=== PATIENT | female | born 1960 | race Caucasian/White ===

== ENCOUNTER 2016-09-05 07:03 | Emergency (ER) | payer OTHER ==
[2016-09-05 07:22] VITALS: RESP 16; TEMP 98.3; O2SAT 98
--- NOTE | 2016-09-05 07:44 | UCPHY ---
H & P Time Seen by Provider: 09/05/16 07:29 Patient Type: New HPI/ROS: This patient reports cough associated with chest pressure when she coughs, and noisy sound when she breathing. Her symptoms started 1 week ago and she reports worsening of the cough intensity and frequency. She was unable sleep last night due to the cough. She has associated nasal congestion. She reports no other associated symptoms. She states that she tends to get this similar illness once every 1 or 2 years and that the cough tends to last a long time despite initial improvement with inhaler. ROS: No fevers or chills. No pleuritic pain. She reports no respiratory distress. No vomiting. No myalgias. 7 point ROS is otherwise negative Past Medical/Surgical History: Otherwise healthy Smoking Status: Never smoked Physical Exam: Physical Exam Vital signs are normal. General: No acute distress HEENT: Nose: Clear discharge bilaterally. Oropharynx: No erythema. No exudates or dysphonia ears: External canals and TMs are clear bilaterally. Eyes: Pupils equal and react to light. Extraocular motions are intact. Lungs: Faint expiratory bilateral wheeze and rhonchi. No rales. No respiratory distress. Cardiac: Regular rate and rhythm with no murmur gallop or rub Skin: No rash or pallor. Neuro: Alert and oriented x3 with no sensorimotor deficits. My initial differential diagnosis: Viral versus bacterial bronchitis. No clinical evidence of lower respiratory infection. Constitutional: Initial Vital Signs Temperature (C) 36.8 C 09/05/16 07:19 Heart Rate 101 H 09/05/16 07:19 Respiratory Rate 16 09/05/16 07:19 Blood Pressure 141/89 H 09/05/16 07:19 O2 Sat (%) 98 09/05/16 07:19 O2 Delivery Mode Room Air Allergies/Adverse Reactions: No Known Allergies Allergy (Unverified 09/05/16 07:22) Home Medications: Medication Instructions Recorded Albuterol Hfa Anes Only [Proair 2 puffs IH Q4 PRN #1 mdi 09/05/16 Hfa Icu (*)] Azithromycin [Zithromax] 250 mg PO DAILY #6 tab 09/05/16 Fluticasone Hfa 220 Mcg [Flovent 2 puffs IH DAILY #1 mdi 09/05/16 220 MCG Hfa MDI (*)] Guaifenesin/Codeine Phosphate 5 - 10 ml PO Q6 PRN #120 ml 09/05/16 [Guaifenesin-Codeine Liquid] MDM/Departure - Depart Disposition: Home, Routine, Self-Care Clinical Impression: Acute bronchitis Qualifiers: Bronchitis organism: unspecified organism Qualifier Code: (J20.9) Acute bronchitis, unspecified Condition: Good Instructions: Acute Bronchitis (ED) Additional Instructions: Diagnosis: Acute bronchitis Plan: Humidifier Albuterol inhaler for cough, wheeze or shortness of breath Guaifenesin with codeine for cough prevents sleep. If your cough is not improving over the next week then add Flovent steroid inhaler in addition. If you develop fevers, bloody sputum or other worsening symptoms despite the plan at Zithromax antibiotic in addition. Return for any significant worsening despite treatment plan Prescriptions: Fluticasone Hfa 220 Mcg [Flovent 220 MCG Hfa MDI (*)] 2 puffs IH DAILY #1 mdi Guaifenesin/Codeine Phosphate [Guaifenesin-Codeine Liquid] 5 - 10 ml PO Q6 PRN # 120 ml PRN Reason: Cough Albuterol Hfa Anes Only [Proair Hfa Icu (*)] 2 puffs IH Q4 PRN #1 mdi PRN Reason: Wheezing Azithromycin [Zithromax] 250 mg PO DAILY #6 tab Referrals: Heather Blackburn MD [Primary Care Provider] - As per Instructions - PQRS PQRS Measurement: NA
[2016-09-05 08:02] VITALS: BP 151/85; PULSE 95
== END 2016-09-05 08:00 | disposition home or self-care (01) ==
LOC: CED 07:03
DX: J20.9 Acute bronchitis, unspecified (principal)
CPT/HCPCS: 99203-PO; G0463-PO

== ENCOUNTER → 2017-01-06 | Outpatient (CLI) | payer OTHER | LOC: FIMAGING 19:22 | PROVIDERS: ATTEND Neurological Surgery | DX: M50.81 Other cervical disc disorders, high cervical region (principal); M48.02 Spinal stenosis, cervical region; Z98.1 Arthrodesis status ==

== ENCOUNTER → 2017-10-10 | Outpatient (CLI) | payer OTHER | LOC: CIMAGING 07:16 | PROVIDERS: ATTEND Internal Medicine | DX: R10.11 Right upper quadrant pain (principal); N28.1 Cyst of kidney, acquired | CPT/HCPCS: 76705-PO ==

== ENCOUNTER → 2017-10-26 | Outpatient (CLI) | payer OTHER | LOC: FIMAGING 12:37 | PROVIDERS: ATTEND Internal Medicine | DX: R10.11 Right upper quadrant pain (principal); R31.9 Hematuria, unspecified ==

== ENCOUNTER → 2017-10-27 | Outpatient (CLI) | payer OTHER | LOC: FIMAGING 18:07 | PROVIDERS: ATTEND Internal Medicine | DX: R10.11 Right upper quadrant pain (principal) ==

== ENCOUNTER → 2017-11-06 | Outpatient (CLI) | payer OTHER | LOC: FIMAGING 19:28 | PROVIDERS: ATTEND Internal Medicine | DX: R10.11 Right upper quadrant pain (principal) ==

== ENCOUNTER → 2018-09-21 | Outpatient (CLI) | payer OTHER | LOC: FIMAGING 10:54 | PROVIDERS: ATTEND Internal Medicine | DX: Z13.820 Encounter for screening for osteoporosis (principal); M81.0 Age-related osteoporosis without current pathological fracture; Z78.0 Asymptomatic menopausal state ==

== ENCOUNTER 2018-10-11 12:18 | Emergency (ER) | payer OTHER ==
[2018-10-11 12:34] VITALS: BP 135/79
--- NOTE | 2018-10-11 12:41 | EDPHY ---
H & P Stated Complaint: Pt.'s with chills,bodyaches,temp-100 this am,s/s's started yest. Time Seen by Provider: 10/11/18 12:34 HPI/ROS: CHIEF COMPLAINT: Body aches, dry cough, HISTORY OF PRESENT ILLNESS: Patient is a 58-year-old female whose was recently diagnosed with influenza. She states that she has had a dry cough and body aches and low-grade fevers at home for the last 24 hr. She would like to get tested for the flu. No sore throat. No runny nose. No headache. No urinary symptoms. She does feel slightly nauseous but does not vomited. No diarrhea. No rash. Severity: Moderate Modifying factors: None REVIEW OF SYSTEMS: Constitutional: See HPI EENTM: denies: blurred vision, double vision, nose congestion Respiratory: See HPI Cardiac: denies: chest pain, irregular heart rate, lightheadedness, palpitations Gastrointestinal/Abdominal: denies: abdominal pain, diarrhea, nausea, vomiting, blood streaked stools Genitourinary: denies: dysuria, frequency, hematuria, pain Musculoskeletal: See HPI Skin: denies: lesions, rash, jaundice, bruising Neurological: denies: headache, numbness, paresthesia, tingling, dizziness, weakness Hematologic/Lymphatic: denies: blood clots, easy bleeding, easy bruising Immunologic/allergic: denies: HIV/AIDS, transplant 10 systems reviewed and negative except as noted EXAM: GENERAL: Well-appearing, well-nourished and in no acute distress. HEAD: Atraumatic, normocephalic. EYES: Pupils equal round and reactive to light, extraocular movements intact, sclera anicteric, conjunctiva are normal. ENT: TMs normal, nares patent, oropharynx clear without exudates. Moist mucous membranes. NECK: Normal range of motion, supple without lymphadenopathy or JVD. LUNGS: Breath sounds clear to auscultation bilaterally and equal. No wheezes rales or rhonchi. HEART: Regular rate and rhythm without murmurs, rubs or gallops. ABDOMEN: Soft, nontender, normoactive bowel sounds. No guarding, no rebound. No masses appreciated. BACK: No CVA tenderness, no spinal tenderness, step-offs or deformities EXTREMITIES: Normal range of motion, no pitting or edema. No clubbing or cyanosis. NEUROLOGICAL: Cranial nerves II through XII grossly intact. Normal speech, normal gait. 5/5 strength, normal movement in all extremities, normal sensation , normal reflexes PSYCH: Normal mood, normal affect. SKIN: Warm, dry, normal turgor, no visible rashes or lesions. Source: Patient Exam Limitations: No limitations - Personal History Current Tetanus Diphtheria and Acellular Pertussis (TDAP): Yes - Medical/Surgical History Hx Asthma: No Hx Chronic Respiratory Disease: No Hx Diabetes: No Hx Cardiac Disease: No Hx Renal Disease: No Hx Cirrhosis: No Hx Alcoholism: No Hx HIV/AIDS: No Hx Splenectomy or Spleen Trauma: No Other PMH: Med hx-none. Surg-appy - Family History Significant Family History: No pertinent family hx - Social History Smoking Status: Never smoked Alcohol Use: None Constitutional: Initial Vital Signs Temperature (C) 37.2 C 10/11/18 12:29 Heart Rate 106 H 10/11/18 12:29 Respiratory Rate 16 10/11/18 12:29 Blood Pressure 135/79 H 10/11/18 12:29 O2 Sat (%) 95 10/11/18 12:29 O2 Delivery Mode Room Air Allergies/Adverse Reactions: Penicillins Allergy (Intermediate, Verified 10/11/18 12:28) Rash Home Medications: Medication Instructions Recorded Multivitamins 10/11/18 Oseltamivir Phosphate [Tamiflu 75 75 mg PO BID #10 cap 10/11/18 mg (*)] Medical Decision Making ED Course/Re-evaluation: The patient is exposed to the flu and has the onset of symptoms. I will start her on Tamiflu. She would like to have her nose swabbed for verification. I would likely start her on Tamiflu even if there was a false negative. Differential Diagnosis: Partial list of the Differential diagnosis considered include but were not limited to; influenza, viral syndrome, and although unlikely based on the history and physical exam, I also considered strep throat, pneumonia, sepsis, meningitis, gastritis, urinary tract infection, kidney stone. I discussed these differential diagnoses and the plan with the patient as well as the usual and expected course. The patient understands that the diagnosis is provisional and that in medicine we are not always correct and that further workup is often warranted. Usual and customary warnings were given. All of the patient's questions were answered. The patient was instructed to return to the emergency department should the symptoms at all worsen or return, otherwise to followup with the physician as we discussed. - Data Points Point of Care Test Results: Influenza PCR Flu Nasal Swab Collection Date 10/11/18 Flu Nasal Swab Collection Time 13:05 Influenza A Result Detected Influenza B Result Not Detected Departure - Departure Disposition: Home, Routine, Self-Care Clinical Impression: Influenza Condition: Fair Instructions: Oseltamivir (By mouth), Influenza (ED) Referrals: Heather Blackburn MD [Primary Care Provider] - As per Instructions Prescriptions: Oseltamivir Phosphate [Tamiflu 75 mg (*)] 75 mg PO BID #10 cap
== END 2018-10-11 13:15 | disposition home or self-care (01) ==
LOC: CED 12:18
DX: J10.1 Influenza due to other identified influenza virus with other respiratory manifestations (principal)
CPT/HCPCS: 99283-ER

== ENCOUNTER → 2018-11-12 | Outpatient (CLI) | payer OTHER | LOC: CIMAGING 15:36 | PROVIDERS: ATTEND Internal Medicine | DX: R05 Cough (principal) | CPT/HCPCS: 71046-PO ==